=== PATIENT | female | born 1980 | race Caucasian/White ===

== ENCOUNTER 2018-07-26 17:13 | Emergency (ER) | payer MEDICAID ==
[2018-07-26 17:20] VITALS: Ht 172.7 cm
[2018-07-26 18:02] LABS: BASOPHIL % 0.4 % (0-2); PLATELET COUNT 282 x10^3mcL (130-400); RED CELL DISTRIBUTION WIDTH 13.6 % (11.5-14.5)
[2018-07-26 18:03] LABS: CALCIUM 8.4 mg/dL (8.5-10.1); CARBON DIOXIDE 26.4 mmol/L (21-32); CHLORIDE SERUM 106 mmol/L (98-107); CREATININE SERUM 0.9 mg/dL (0.6-1.0); GFR1 > 60 mL/min; GLUCOSE SERUM 108 mg/dL (74-106); POTASSIUM SERUM 4.1 mmol/L (3.5-5.1); SODIUM SERUM 139 mmol/L (136-145)
[2018-07-26 18:08] LABS: ALBUMIN 3.4 g/dL (3.4-5.0); ALKALINE PHOSPHATASE 69 U/L (46-116); ALT/SGPT 149 U/L (14-59); AST/SGOT 72 U/L (15-37); BILIRUBIN TOTAL 0.2 mg/dL (0.20-1.00); TOTAL PROTEIN, SERUM 7.3 g/dL (6.4-8.2)
[2018-07-26 18:49] VITALS: BP 108/68
== END 2018-07-26 18:50 | disposition home or self-care (01) ==
LOC: ED 17:13
PROVIDERS: Emergency Medicine
DX: G44.209 Tension-type headache, unspecified, not intractable (principal); H66.92 Otitis media, unspecified, left ear
CPT/HCPCS: J1885; J7030

== ENCOUNTER 2018-07-29 13:04 | Emergency (ER) | payer MEDICAID ==
[~2018-07-29] VITALS: Ht 172.7 cm; Wt 125.6 kg
[2018-07-29 13:23] VITALS: BP 138/98; Ht 172.7 cm; Wt 125.6 kg
== END 2018-07-29 14:03 | disposition home or self-care (01) ==
LOC: ED 13:04
DX: L20.9 Atopic dermatitis, unspecified (principal)

== ENCOUNTER 2019-07-08 09:12 | Emergency (ER) | payer MEDICAID ==
[~2019-07-08] VITALS: Ht 167.6 cm; Wt 128.4 kg
[2019-07-08 10:30] VITALS: BP 130/79
== END 2019-07-08 10:35 | disposition home or self-care (01) ==
LOC: ED 09:12
DX: R22.31 Localized swelling, mass and lump, right upper limb (principal); M79.601 Pain in right arm